=== PATIENT | male | born 1970 | race Caucasian/White ===

== ENCOUNTER 2021-07-16 06:44 | Day surgery (SDC) | payer BC ==
[~2021-07-16 06:44] MED LIST: Lactated Ringers 1,000 ML IV SCH; ceFAZolin 2 GM in Premix Bag 1 BAG IV ONE
[2021-07-16] MEDS ORDERED: Morphine 2 MG/ML SYRINGE IVPUSH PRN (06:51)
[2021-07-16] MEDS ORDERED: Albuterol 0.083% 2.5 MG/3 ML Neb Soln NEB PRN (06:51)
[2021-07-16] MEDS ORDERED: Naloxone 0.4 MG/ML SDV IVPUSH PRN (06:51)
[2021-07-16] MEDS ORDERED: HYDROmorphone 1 MG/ML Syringe IVPUSH PRN (06:51)
[2021-07-16] MEDS ORDERED: Metoclopramide 10 MG/2 ML SDV IVPUSH PRN (06:51)
[2021-07-16] MEDS ORDERED: Ondansetron 4 MG/2 ML SDV IVPUSH PRN (06:51)
--- NOTE | 2021-07-16 07:17 | PCM.PREANE ---
Preanesthetic Assessment - Anesthesia/Transfusion/Family Hx Anesthesia History: Prior Anesthesia Without Reaction Transfusion History: No Prior Transfusion(s) - Review of Systems General: No Symptoms Pulmonary: No Symptoms Cardiovascular: No Symptoms Gastrointestinal: No Symptoms, Other (GERD) Neurological: No Symptoms Other: Reports: None - Physical Assessment Vital Signs: Last Vital Signs Temp 97.5 F 07/16/21 07:03 Pulse 75 07/16/21 07:03 Resp 14 07/16/21 07:03 BP 145/90 H 07/16/21 07:03 Pulse Ox 96 07/16/21 07:03 Height: 5 ft 4 in Weight: 190 lb ASA Class: 2 Mental Status: Alert & Oriented x3 Airway Class: Mallampati = 2 Dentition: Reports: Normal Dentition ROM/Head Extension: Full Lungs: Clear to Auscultation, Normal Respiratory Effort Cardiovascular: Regular Rate, Regular Rhythm - Allergies Allergies/Adverse Reactions: Allergies Allergy/AdvReac Type Severity Reaction Status Date / Time No Known Allergies Allergy Verified 07/10/21 08:30 - Acknowledgements Anesthesia Type Planned: General Anesthesia Pt an Appropriate Candidate for the Planned Anesthesia: Yes Alternatives and Risks of Anesthesia Discussed w Pt/Guardian: Yes Pt/Guardian Understands and Agrees with Anesthesia Plan: Yes PreAnesthesia Questionnaire HEENT History: Reports: Other (See Below) Other HEENT History: wears glasses Cardiovascular History: Reports: None Respiratory History: Reports: Sleep Apnea Other Respiratory History: uses CPAP Gastrointestinal History: Reports: GERD Genitourinary History: Reports: Renal Calculus Musculoskeletal History: Reports: None Neurological History: Reports: None Psychiatric History: Reports: None Endocrine/Metabolic History: Reports: Obesity/BMI 30+ Hematologic History: Reports: None Immunologic History: Reports: None Oncologic (Cancer) History: Reports: None Dermatologic History: Reports: None - Infectious Disease History Infectious Disease History: Reports: SARS Other Infectious Disease History: states tested positive for COVID on April 24 at [facility] - Past Surgical History Head Surgeries/Procedures: Reports: None HEENT Surgical History: Reports: None Cardiovascular Surgical History: Reports: None Respiratory Surgical History: Reports: None GI Surgical History: Reports: Appendectomy Male Surgical History: Reports: None Endocrine Surgical History: Reports: None Neurological Surgical History: Reports: None Musculoskeletal Surgical History: Reports: None Oncologic Surgical History: Reports: None Dermatological Surgical History: Reports: None - SUBSTANCE USE Tobacco Use Status *Q: Current Every Day Tobacco User Tobacco Use Within Last Twelve Months: Cigarettes - HOME MEDS Home Medications: Home Meds Ascorbic Acid [Vitamin C] 1 tab PO DAILY 07/10/21 [History] Cholecalciferol (Vitamin D3) [Vitamin D3] 1 tab PO DAILY 07/10/21 [History] Elderberry With Zinc 1 tab PO DAILY 07/10/21 [History] Esomeprazole [NexIUM] 20 mg PO DAILY 07/10/21 [History] - CURRENT (IN HOUSE) MEDS Current Meds: Current Medications Albuterol (Albuterol 0.083% 2.5 Mg/3 Ml Neb Soln) 2.5 mg NEB ONETIME PRN PRN Reason: Wheezing Droperidol (Droperidol 5 Mg/2 Ml Sdv) 0.625 mg IVPUSH ONETIME PRN PRN Reason: Nausea/Vomiting Fentanyl (Fentanyl 100 Mcg/2 Ml Sdv) 50 mcg IVPUSH Q5M PRN PRN Reason: Pain (mild 1-3) Hydromorphone HCl (Hydromorphone 1 Mg/Ml Syringe) 1 mg IVPUSH Q10M PRN PRN Reason: Pain (moderate 4-6) Lactated Ringer's (Ringers, Lactated) 1,000 mls @ 125 mls/hr IV ASDIRECTED [facility] Last Admin: 07/16/21 07:09 Dose: 125 mls/hr Documented by: Metoclopramide HCl (Metoclopramide 10 Mg/2 Ml Sdv) 10 mg IVPUSH ONETIME PRN PRN Reason: Nausea/Vomiting Morphine Sulfate (Morphine 2 Mg/Ml Syringe) 2 mg IVPUSH Q10M PRN PRN Reason: Pain (severe 7-10) Naloxone HCl (Naloxone 0.4 Mg/Ml Sdv) 0.1 mg IVPUSH ASDIRECTED PRN PRN Reason: Respiratory Depression Ondansetron HCl (Ondansetron 4 Mg/2 Ml Sdv) 4 mg IVPUSH ONETIME PRN PRN Reason: Nausea/Vomiting Discontinued Medications Cefazolin Sodium/Dextrose 2 gm (/ Premix) 50 mls @ 100 mls/hr IV ONETIME ONE Stop: 07/15/21 16:29
[2021-07-16] MEDS ORDERED: Lidocaine 2% 5 ML SDV ONE (07:18)
[2021-07-16] MEDS ORDERED: Ondansetron 4 MG/2 ML SDV ONE (07:18)
[2021-07-16] MEDS ORDERED: fentaNYL 100 MCG/2 ML SDV ONE ×2 (07:18→08:03)
[2021-07-16] MEDS ORDERED: Dexamethasone 4 MG/ML 5 ML MDV ONE (07:18)
[2021-07-16] MEDS ORDERED: Propofol 200 MG/20 ML SDV ONE (07:18)
[2021-07-16] MEDS ORDERED: Midazolam 1 MG/ML 2 ML SDV ONE (07:18)
[2021-07-16] MEDS ORDERED: Bupivacaine 25%/EPINEPHrine/PF 30 ML ONE (07:20)
[2021-07-16] MEDS ORDERED: Octyl 2-Cyanoacrylate 1 Tube ONE (08:30)
[2021-07-16] MEDS ORDERED: Ketorolac 30 MG/ML SDV ONE (08:30)
--- NOTE | 2021-07-16 08:55 | PCM.OPNOTE ---
- General Post-Op/Procedure Note Date of Surgery/Procedure: 07/16/21 Operative Procedure(s): incarcerated incisional hernia repair, no mesh used Findings: small omentum incarcerated, pushed back to abd cavity, fascia defect 10 mm, repair primarily, no mesh used; [id number] Pre Op Diagnosis: incarcerated incisional hernia Post-Op Diagnosis: Same Anesthesia Technique: General LMA Primary Surgeon: Heladio Hatfield Complications: None Condition: Good
--- NOTE | 2021-07-16 08:59 | PCM48HPAN ---
Post Anesthesia Note - EVALUATION WITHIN 48HRS OF ANESTHETIC Vital Signs in Normal Range: Yes Patient Participated in Evaluation: Yes Respiratory Function Stable: Yes Airway Patent: Yes Cardiovascular Function Stable: Yes Hydration Status Stable: Yes Pain Control Satisfactory: Yes Nausea and Vomiting Control Satisfactory: Yes Mental Status Recovered: Yes Vital Signs: Last Vital Signs Temp 97.5 F 07/16/21 07:03 Pulse 75 07/16/21 07:03 Resp 14 07/16/21 07:03 BP 139/88 07/16/21 07:20 Pulse Ox 96 07/16/21 07:03
--- NOTE | 2021-07-16 08:59 | PCM.POSTAN ---
POST ANESTHESIA ASSESSMENT - MENTAL STATUS Mental Status: Alert, Oriented - VITAL SIGNS Vital Signs: Last Vital Signs Temp 97.5 F 07/16/21 07:03 Pulse 75 07/16/21 07:03 Resp 14 07/16/21 07:03 BP 139/88 07/16/21 07:20 Pulse Ox 96 07/16/21 07:03 - RESPIRATORY Respiratory Status: Respiratory Rate WNL, Airway Patent, O2 Saturation Stable - CARDIOVASCULAR CV Status: Pulse Rate WNL, Blood Pressure Stable - GASTROINTESTINAL GI Status: No Symptoms - POST OP HYDRATION Hydration Status: Adequate & Stable
[2021-07-16] MEDS ORDERED: Acetaminophen 1,000 MG in Premix Bag 1 BAG IV ONE (09:28)
[2021-07-16] MEDS: fentaNYL 100 MCG/2 ML SDV IVPUSH PRN ×2 (09:30→09:39)
--- NOTE | 2021-07-16 15:02 | OR ---
SURGEON: Heladio Hatfield MD DATE OF PROCEDURE: 07/16/2021 PREPERATIVE DIAGNOSIS: Incarcerated incisional hernia. POSTOPERATIVE DIAGNOSIS: Incarcerated incisional hernia. PROCEDURE PERFORMED: Repair primary, no mesh used. PRIMARY SURGEON: Heladio Hatfield MD COMPLICATION: None. FINDING: A small omentum incarcerated pushed back to the abdominal cavity, fascial defect 10 mm, repair primary, no mesh used. PROCEDURE IN DETAIL: The patient was brought to the operating room and placed in the supine position and upon the induction of general endotracheal anesthesia, the patient's abdomen was prepped and draped in sterile fashion. After assessment of appropriate landmarks, a surgical incision was made periumbilically which was then carefully dissected with blunt and sharp dissection surrounding the umbilical stalk. Hernia was entered and the fascial defect was noted, and the excess hernia sac was amputated. The facial edge was noted to be intact and the fascia was then grasped up with Allis clamps and then using 2-0 Ethibond, simple stitches were placed. After repair was finished and exploring the neighborhood, I failed to find any more hernia defect. This was followed with extensive irrigation and good hemostasis was achieved by using electrocautery. The umbilicus was then stitched down to recreate the umbilicus, and the skin was closed with 3-0 Vicryl subcutaneously followed with Dermabond approximating the skin. The patient was then awakened and extubated and transferred to the recovery room in good stable condition. Dr. Hatfield was present through the whole procedure. At the conclusion of the surgery, before closing the abdominal wound, instrument count and sponge count were done and were correct. Just before surgery, a timeout was called. The patient was identified and procedure identified and procedure started. Intraoperative findings as dictated above. THOMAS / EUGENIA /[id number]
== END 2021-07-16 10:48 | disposition home or self-care (01) ==
LOC: MW.SDS 06:44
PROVIDERS: ATTEND Surgery
DX: K43.0 Incisional hernia with obstruction, without gangrene (principal); K21.9 Gastro-esophageal reflux disease without esophagitis; G47.30 Sleep apnea, unspecified; E66.9 Obesity, unspecified; Z79.899 Other long term (current) drug therapy; F17.210 Nicotine dependence, cigarettes, uncomplicated
CPT/HCPCS: 49561; A9270; J0131; J0690; J1100; J1885; J2250; J2405; J2704; J3010; J7120; 00790